=== PATIENT | female | born 1940 | race Caucasian/White ===

== ENCOUNTER 2017-06-07 17:49 | Observation (INO) | payer MEDICARE, BC ==
[~2017-06-07] VITALS: Ht 154.9 cm; Wt 79.4 kg
[2017-06-07] VITALS (10 sets, daily range): BP systolic 127–155; BP diastolic 59–85; PULSE 72–85; RESP 16–18; TEMP 96–98.3; O2SAT 95–99
[2017-06-07] MEDS ORDERED: SYNT25TA PO (18:05)
[2017-06-07] MEDS ORDERED: ARMO60TA PO (18:05)
[2017-06-07] MEDS ORDERED: ASPI81CH6 CHEW (18:05)
[2017-06-07 18:28] LABS: AUTOMATED NEUTROPHIL # 3.8 TH/MM3 (1.8-7.7); BASOPHIL % 0.7 % (0.0-2.0); CHLORIDE 105 MEQ/L (98-107); EOSINOPHIL # 0.3 TH/MM3 (0-0.4); EOSINOPHIL % 4.3 % (0.0-4.0); HEMATOCRIT 28.3 % (35.0-46.0); LYMPH % 27.6 % (9.0-44.0); LYMPHOCYTE # 1.8 TH/MM3 (1.0-4.8); MEAN CELL VOLUME 66.3 FL (80.0-100.0); MEAN CORPUSCULAR HEMOGLOBIN 20.7 PG (27.0-34.0); MEAN CORPUSCULAR HGB CONC 31.2 % (32.0-36.0); MONO % 9.4 % (0.0-8.0); PLATELET COUNT 350 TH/MM3 (150-450); POTASSIUM 4.2 MEQ/L (3.5-5.1); RED BLOOD COUNT 4.27 MIL/MM3 (4.00-5.30); RED CELL DISTRIBUTION WIDTH 18.7 % (11.6-17.2); SODIUM (NA) 138 MEQ/L (136-145); WHITE BLOOD COUNT 6.5 TH/MM3 (4.0-11.0)
--- NOTE | 2017-06-07 18:29 | PD ---
HPI Chief Complaint: Chest Pain Time Seen by Provider: 18:09 Travel History International Travel<30 days: No Contact w/Intl Traveler<30days: No Traveled to known affect area: No History of Present Illness HPI Patient is a 76-year-old female with history of mitral valve stenosis who presents to emergency with complaints of chest pain. Patient reports that chest began early this morning around 9:30 AM, reports that chest pain is located in her left breast, reports that radiates to her back. Patient reports the pressure sensation to her chest wall, no shortness of breath or diaphoresis with her symptoms. Patient reports that it is hard for her to take a deep breath as she has increased pains to her chest with deep breaths. She reports that throughout the day, the pain has moved to her right chest wall. Patient reports no history of hypertension or hyperlipidemia, reports history of COPD in the past. Reports no recent travels or trips, no history of PE or DVT. Patient reports that she did see Dr. Vee in the past (about 3 years ago) and was placed on Coumadin - reports that she could not tolerate the Coumadin and she was then put on Eliquis. Patient was unsure why she was placed on anticoagulants, reports that she was told that this is the only thing that would help with her symptoms. Patient reports that she could not tolerate either the medications, she was discharged from Dr. Vee's service and her appointment was canceled. Patient reports that she was never seen by a track moving machine operator since then as she did not believe she had any cardiac issues. Patient this time reports that the only medication she takes is 3 baby aspirins a day. She is a nonsmoker. PFSH Past Medical History Cardiovascular Problems: Yes (mitral valve stenosis) Diminished Hearing: No Influenza Vaccination: No ?: Not Past Surgical History Appendectomy: Yes Hysterectomy: Yes Social History Alcohol Use: Yes Tobacco Use: No Allergies-Medications (Allergen,Severity, Reaction): Coded Allergies: nickel (Verified Allergy, Severe, Burning, 06/07/17) Reported Meds & Prescriptions Reported Meds & Active Scripts Active Reported Synthroid (Levothyroxine Sodium) 25 Mcg Tab 25 Mcg PO DAILY [place] Thyroid (Thyroid) 60 Mg Tab 60 Mg PO DAILY Aspirin Low Dose (Aspirin) 81 Mg Chew 324 Mg CHEW DAILY Review of Systems General / Constitutional: No: Fever Eyes: No: Visual changes HENT: No: Headaches Cardiovascular: Positive: Chest Pain or Discomfort, No: Diaphoresis Respiratory: No: Cough, Shortness of Breath Gastrointestinal: No: Nausea, Vomiting, Diarrhea, Abdominal Pain Genitourinary: No: Dysuria Musculoskeletal: No: Pain Skin: No Rash Neurologic: No: Weakness Psychiatric: No: Depression Endocrine: No: Polydipsia Hematologic/Lymphatic: No: Easy Bruising Physical Exam Narrative GENERAL: Mild distress SKIN: Focused skin assessment warm/dry. HEAD: Atraumatic. Normocephalic. EYES: Pupils equal and round. No scleral icterus. No injection or drainage. ENT: No nasal bleeding or discharge. Mucous membranes pink and moist. NECK: Trachea midline. No JVD. CARDIOVASCULAR: Regular rate and rhythm. No murmur appreciated. RESPIRATORY: No accessory muscle use. Clear to auscultation. Breath sounds equal bilaterally. GASTROINTESTINAL: Abdomen soft, non-tender, nondistended. Hepatic and splenic margins not palpable. MUSCULOSKELETAL: No obvious deformities. No clubbing. No cyanosis. No edema. NEUROLOGICAL: Awake and alert. No obvious cranial nerve deficits. Motor grossly within normal limits. Normal speech. PSYCHIATRIC: Appropriate mood and affect; insight and judgment normal. Data Data Last Documented VS Vital Signs Date Time Temp Pulse Resp B/P (MAP) Pulse Ox O2 Delivery O2 Flow Rate FiO2 06/07/17 19:44 80 16 132/59 (83) 98 Room Air 06/07/17 17:57 98.3 Orders Orders Electrocardiogram (06/07/17 18:03) Complete Blood Count With Diff (06/07/17 18:03) Basic Metabolic Panel (Bmp) (06/07/17 18:03) Ckmb (Isoenzyme) Profile (06/07/17 18:03) Troponin I (06/07/17 18:03) Chest, Single Ap (06/07/17 18:03) Iv Access Insert/Monitor (06/07/17 18:03) Ecg Monitoring (06/07/17 18:03) Oxygen Administration (06/07/17 18:03) Oximetry (06/07/17 18:03) Ct Pulmonary Angiogram (06/07/17 18:20) Aspirin Chew (Aspirin Chew) (06/07/17 18:30) Nitroglycerin Sl (Nitrostat Sl) (06/07/17 18:30) Sodium Chlor 0.9% 1000 Ml Inj (Ns 1000 M (06/07/17 18:30) CKMB (06/07/17 18:00) CKMB% (06/07/17 18:00) Iohexol 350 Inj (Omnipaque 350 Inj) (06/07/17 19:13) Admit Order (Ed Use Only) (06/07/17 20:51) Labs Laboratory Tests Test 06/07/17 18:00 White Blood Count 6.5 TH/MM3 Red Blood Count 4.27 MIL/MM3 Hemoglobin 8.8 GM/DL Hematocrit 28.3 % Mean Corpuscular Volume 66.3 FL Mean Corpuscular Hemoglobin 20.7 PG Mean Corpuscular Hemoglobin Concent 31.2 % Red Cell Distribution Width 18.7 % Platelet Count 350 TH/MM3 Mean Platelet Volume 8.1 FL Neutrophils (%) (Auto) 58.0 % Lymphocytes (%) (Auto) 27.6 % Monocytes (%) (Auto) 9.4 % Eosinophils (%) (Auto) 4.3 % Basophils (%) (Auto) 0.7 % Neutrophils # (Auto) 3.8 TH/MM3 Lymphocytes # (Auto) 1.8 TH/MM3 Monocytes # (Auto) 0.6 TH/MM3 Eosinophils # (Auto) 0.3 TH/MM3 Basophils # (Auto) 0.0 TH/MM3 CBC Comment AUTO DIFF Differential Comment AUTO DIFF CONFIRMED Target Cells 1+ Tear Drop Cells 1+ Ovalocytes 1+ Blood Urea Nitrogen 20 MG/DL Creatinine 0.63 MG/DL Random Glucose 79 MG/DL Calcium Level 8.2 MG/DL Sodium Level 138 MEQ/L Potassium Level 4.2 MEQ/L Chloride Level 105 MEQ/L Carbon Dioxide Level 24.1 MEQ/L Anion Gap 9 MEQ/L Estimat Glomerular Filtration Rate 92 ML/MIN Total Creatine Kinase 110 U/L Creatine Kinase MB 0.9 NG/ML Troponin I LESS THAN 0.02 NG/ML MDM Medical Decision Making Medical Screen Exam Complete: Yes Emergency Medical Condition: Yes Medical Record Reviewed: Yes Interpretation(s) EKG at 1756: NSR at 81bpm, qt/qtc: 378/415, no acute st or t wave changes Vital Signs Date Time Temp Pulse Resp B/P (MAP) Pulse Ox O2 Delivery O2 Flow Rate FiO2 06/07/17 18:10 98 Room Air 06/07/17 18:09 81 18 155/76 (102) 99 Room Air 06/07/17 18:05 82 06/07/17 17:57 98.3 85 18 146/76 (99) 98 Differential Diagnosis ACS, arrhythmia, PE, pneumothorax Narrative Course During the course of the patients emergency department visit, the patients history, examination, and differential diagnosis were reviewed with the patient. The patient was placed on a irrigationist designer with oximetry and frequent blood pressure monitoring. The patient had [-] IV access obtained and blood work sent for analysis. The patient was initially provided SL NITRO x 3 (relief of chest pain after SL nitro was given) as well as ASA The patients laboratory studies were reviewed and remarkable for: CBC & BMP Diagram 06/07/17 18:00 Calcium Level 8.2 L TROP x 1 less than 0.02 Radiology studies were reviewed and remarkable for: Last Impressions Chest X-Ray 06/07/17 1803 Signed Impressions: Service Date/Time: Wednesday, June 07, 2017 18:17 - CONCLUSION: No acute abnormality seen in Pablo Sal MD CTA negative for PE. Patient with relief of chest pain at time. Plan to obs in chest pain center. Diagnosis Primary Impression: Chest pain Qualified Codes: R07.9 - Chest pain, unspecified Admitting Information Admitting Physician Requests: Observation Dalia Walker DO Jun 07, 2017 18:29
[2017-06-07] MEDS ORDERED: ASPIRIN 81 MG CHEW TAB PO ONE (18:30)
[2017-06-07] MEDS ORDERED: SODIUM CHLOR 0.9% 1000 ML INJ 1,000 ML IV ONE (18:30)
[2017-06-07 18:31] LABS: ANION GAP 9 MEQ/L (5-15); BICARBONATE 24.1 MEQ/L (21.0-32.0); BLOOD UREA NITROGEN 20 MG/DL (7-18)
[2017-06-07 18:34] LABS: GLOMERULAR FILTRATION RATE 92 ML/MIN (>89)
[2017-06-07 18:37] LABS: CREATINE KINASE 110 U/L (26-192)
[2017-06-07] MEDS: NITROGLYCERIN 0.4 MG SL 25 TABS/BTL SL SCH ×3 (18:38→19:35)
[2017-06-07 18:45] LABS: HEMO FLAGS AUTO DIFF
[2017-06-07 18:49] LABS: CKMB 0.9 NG/ML (0.5-3.6)
[2017-06-07] MEDS ORDERED: IOHEXOL 350 MG/ML 10 ML VIAL (for RAD DIAG) IVCONTRAST ONE (19:13)
--- NOTE | 2017-06-07 19:26 | RADRPT ---
EXAM DATE/TIME: 06/07/2017 18:17 [facility] COMPARISON: No previous studies available for comparison. INDICATIONS : Chest pain today. MEDICAL HISTORY : None. SURGICAL HISTORY : None. ENCOUNTER: Initial ACUITY: 1 day PAIN SCORE: 6/10 LOCATION: Bilateral chest FINDINGS: The heart size is normal. The lungs are grossly clear. There is a mass like area seen posterior to th e inferior aspect of heart likely related either to a hiatal hernia or a tortuous aorta. The patient is scheduled for a CT pulmonary angiogram. CONCLUSION: No acute abnormality seen in aPblo Sal MD on June 07, 2017 at 19:23 Board Certified Radiologist. This report was verified electronically.
[2017-06-07 19:42] LABS: OVALOCYTES 1+ (NORMAL); SCAN/DIFF AUTO DIFF CONFIRMED; TARGET CELLS 1+ (NORMAL); TEARDROP RBCS 1+ (NORMAL)
--- NOTE | 2017-06-07 20:36 | RADRPT ---
EXAM DATE/TIME: 06/07/2017 19:06 [facility] COMPARISON: CHEST SINGLE AP, June 07, 2017, 18:17. INDICATIONS : Left sided chest pain radiating to her back. Evaluate for embolism. IV CONTRAST: 65 cc Omnipaque 350 (iohexol) IV RADIATION DOSE: 19.70 CTDIvol (mGy) MEDICAL HISTORY : None SURGICAL HISTORY : Appendectomy. Hysterectomy. ENCOUNTER: Initial ACUITY: 1 day PAIN SCALE: 5/10 LOCATION: Left chest TECHNIQUE: Volumetric scanning of the chest was performed using a pulmonary embolism protocol MIP images were re constructed. Using automated exposure control and adjustment of the mA and/or kV according to patien t size, radiation dose was kept as low as reasonably achievable to obtain optimal diagnostic quality images. DICOM format image data is available electronically for review and comparison. Follow-up recommendations for detected pulmonary nodules are based at a minimum on nodule size and pa tient risk factors according to Fleischner Society Guidelines. FINDINGS: No pulmonary embolus is seen. There is some minimal suspected atelectasis at the periphery of the low er lungs. The lungs are otherwise clear. There is a moderate to large hiatal hernia with approximat tamika half of the stomach seen above the hemidiaphragm. Atherosclerotic calcifications are seen at the aorta. Calcifications are seen at the aortic valve and the mitral valve anulus. There is a 1.5 cm gallstone present. There are low density masses seen in the right lobe of the liver. These measure u p to 3.5 cm. These are nonspecific on this CTA for the pulmonary embolus evaluation. They likely re present cysts. There is a small lipoma seen at the left lateral upper abdominal wall measuring 3.3 x 1.4 cm. CONCLUSION: 1. No pulmonary embolus. 2. Moderate to large hiatal hernia. 3. Gallstone. 4. Hepatic lesions which are nonspecific. These could represent cysts. Pablo Sal MD on June 07, 2017 at 20:24 Board Certified Radiologist. This report was verified electronically.
[2017-06-07] MEDS ORDERED: SODIUM CHLORIDE 0.9% FLUSH 10 ML FLUSH IV FLUSH PRN (21:00)
[2017-06-07] MEDS ORDERED: ACETAMINOPHEN 500 MG CPLT PO PRN (21:00)
[2017-06-07] MEDS ORDERED: ONDANSETRON HCL 4 MG/2 ML VIAL IV PUSH PRN (21:00)
[2017-06-07] MEDS: HEPARIN SODIUM - SQ 10,000 UNITS/ML VIAL SQ SCH (22:17)
[2017-06-07 22:52] LABS: CREATINE KINASE 90 U/L (26-192)
[2017-06-07] MEDS: SODIUM CHLORIDE 0.9% FLUSH 10 ML FLUSH IV FLUSH SCH (23:23)
[2017-06-08] VITALS: BP 133/74; PULSE 72; RESP 18; TEMP 96; O2SAT 97
[2017-06-08 00:46] LABS: CREATINE KINASE 84 U/L (26-192)
[2017-06-08 04:00] VITALS: BP 103/55; PULSE 80; RESP 20; TEMP 97.5; O2SAT 95
[2017-06-08] MEDS: HEPARIN SODIUM - SQ 10,000 UNITS/ML VIAL SQ SCH (05:52)
[2017-06-08] MEDS ORDERED: LEVOTHYROXINE SODIUM 25 MCG TAB PO SCH (06:00)
[2017-06-08 08:00] VITALS: BP 122/68; PULSE 80; RESP 16; TEMP 96.8; O2SAT 95; O2SAT 98
--- NOTE | 2017-06-08 08:30 | HHI.HP ---
HPI Service [facility] Primary Care Physician No Primary Care Physician Admission Diagnosis Chest pain Diagnoses: (1) Chest pain Chief Complaint: Chest pain Travel History International Travel<30 Days: No Contact w/Intl Traveler <30 Da: No Traveled to Known Affected Are: No History of Present Illness Written by Montse Escamilla, acting as scribe for Dr. Thompson on 06/08/17 at 08:15. Ms. Reyes is a 76-year-old female patient with a known medical history of mitral valve stenosis, COPD and hypothyroidism who presented to the ED with complaints of chest pain. Patient states that she was shopping with her and around 1pm she noticed a sharp pain in her left chest which radiated to her left arm and shoulder. Reportedly patient states the pain was worse with inspiration.She initially went to urgent care who sent her here. Was given Nitroglycerin SL x 3 in ED which relieved the pain. Denies any associated nausea , vomiting, diaphoresis or shortness of breath. At the time of assessment patient denies any continued chest pain, denies any continued complaints overnight. It was reported that patient was previously a patient with Dr. Vee and placed on anticoagulants in the past but for unknown reasons. Denies any recent illness including fever, chills, cough, headache, shortness of breath, abdominal pain, nausea, vomiting, diarrhea or dysuria. Review of Systems Constitutional: DENIES: Fever, Chills Respiratory: DENIES: Cough, Shortness of breath Cardiovascular: COMPLAINS OF: Chest pain, DENIES: Palpitations Gastrointestinal: DENIES: Abdominal pain, Bloody stools, Constipation, Diarrhea , Nausea, Vomiting Musculoskeletal: DENIES: Joint pain Psychiatric: COMPLAINS OF: Anxiety Except as stated in HPI: all other systems reviewed are Neg Past Family Social History Past Medical History Mitral valve stenosis Hypothyroidism COPD Celiac disease Past Surgical History Hysterectomy Appendectomy Left leg orthopedic surgeries Reported Medications Active Reported Synthroid (Levothyroxine Sodium) 25 Mcg Tab 25 Mcg PO DAILY [place] Thyroid (Thyroid) 60 Mg Tab 60 Mg PO DAILY Aspirin Low Dose (Aspirin) 81 Mg Chew 324 Mg CHEW DAILY Allergies: Coded Allergies: nickel (Verified Allergy, Severe, Burning, 06/07/17) Active Ordered Medications Current Medications Medications (Trade) Dose Ordered Sig/Chelle Route Start Time Stop Time Status Last Admin (Aspirin Chew) 324 mg DAILY CHEW 06/08/17 09:00 (Synthroid) 25 mcg DAILY@0600 PO 06/08/17 06:00 06/08/17 05:51 ([place] Thyroid) 60 mg DAILY PO 06/08/17 09:00 (NS Flush) 2 ml UNSCH PRN IV FLUSH 06/07/17 21:00 (NS Flush) 2 ml BID IV FLUSH 06/07/17 21:00 06/07/17 23:23 (Tylenol) 500 mg Q4H PRN PO 06/07/17 21:00 (Zofran Inj) 4 mg Q6H PRN IV PUSH 06/07/17 21:00 (Heparin Inj) 5,000 units Q8HR SQ 06/07/17 22:00 06/08/17 05:52 Family History Both father and mother has a history of strokes. Social History Denies any tobacco use. Does admit to a few alcoholic drinks per week. Denies any illicit drug use. Physical Exam Vital Signs Vital Signs Date Time Temp Pulse Resp B/P (MAP) Pulse Ox O2 Delivery O2 Flow Rate FiO2 06/08/17 04:00 97.5 80 20 103/55 (71) 95 06/08/17 00:00 96.0 72 18 133/74 (93) 97 06/07/17 23:40 95 21 06/07/17 23:00 85 06/07/17 23:00 96.0 72 18 133/74 (93) 97 06/07/17 22:12 98.2 78 18 135/85 (102) 98 06/07/17 21:15 80 16 127/78 (94) 97 Room Air 06/07/17 19:44 80 16 132/59 (83) 98 Room Air 06/07/17 19:36 82 128/66 (86) 98 Room Air 06/07/17 19:23 77 16 143/75 (97) 97 Room Air 06/07/17 18:40 79 18 147/71 (96) 98 Room Air 06/07/17 18:10 98 Room Air 06/07/17 18:09 81 18 155/76 (102) 99 Room Air 06/07/17 18:05 82 06/07/17 17:57 98.3 85 18 146/76 (99) 98 Physical Exam GENERAL: This is a well-nourished, well-developed female patient, in no apparent distress. SKIN: No rashes, ecchymoses or lesions. Warm and dry. HEENT: Atraumatic. Normocephalic. Pupils equal round and reactive. Extraocular motions intact. No scleral icterus. No injection or drainage. Nose without bleeding. Throat without erythema, tonsillar hypertrophy or exudate. Uvula midline. Airway patent. NECK: Trachea midline. No JVD. Supple. CARDIOVASCULAR: Regular rate and rhythm without murmurs, gallops, or rubs. No reproducible chest pain to palpation. RESPIRATORY: Clear to auscultation. Breath sounds equal bilaterally. No wheezes , rales, or rhonchi. GASTROINTESTINAL: Abdomen soft, non-tender, nondistended. No guarding. MUSCULOSKELETAL: Extremities without clubbing, cyanosis, or edema. No joint tenderness, effusion, or edema noted. NEUROLOGICAL: Awake and alert. Cranial nerves II through XII intact. Motor and sensory grossly within normal limits. Five out of 5 muscle strength in all muscle groups. Normal speech. Laboratory Laboratory Tests Test 06/07/17 18:00 06/07/17 21:35 06/07/17 23:50 White Blood Count 6.5 Red Blood Count 4.27 Hemoglobin 8.8 Hematocrit 28.3 Mean Corpuscular Volume 66.3 Mean Corpuscular Hemoglobin 20.7 Mean Corpuscular Hemoglobin Concent 31.2 Red Cell Distribution Width 18.7 Platelet Count 350 Mean Platelet Volume 8.1 Neutrophils (%) (Auto) 58.0 Lymphocytes (%) (Auto) 27.6 Monocytes (%) (Auto) 9.4 Eosinophils (%) (Auto) 4.3 Basophils (%) (Auto) 0.7 Neutrophils # (Auto) 3.8 Lymphocytes # (Auto) 1.8 Monocytes # (Auto) 0.6 Eosinophils # (Auto) 0.3 Basophils # (Auto) 0.0 CBC Comment AUTO DIFF Differential Comment AUTO DIFF CONFIRMED Target Cells 1+ Tear Drop Cells 1+ Ovalocytes 1+ Blood Urea Nitrogen 20 Creatinine 0.63 Random Glucose 79 Calcium Level 8.2 Sodium Level 138 Potassium Level 4.2 Chloride Level 105 Carbon Dioxide Level 24.1 Anion Gap 9 Estimat Glomerular Filtration Rate 92 Total Creatine Kinase 110 90 84 Creatine Kinase MB 0.9 Troponin I LESS THAN 0.02 LESS THAN 0.02 LESS THAN 0.02 Result Diagram: 06/07/17 1800 06/07/[address] Angiography 06/07/17 1820 Signed Impressions: Service Date/Time: Wednesday, June 07, 2017 19:06 - CONCLUSION: 1. No pulmonary embolus. 2. Moderate to large hiatal hernia. 3. Gallstone. 4. Hepatic lesions which are nonspecific. These could represent cysts. Pablo Sal MD Chest X-Ray 06/07/171802 Signed Impressions: Service Date/Time: Wednesday, June 07, 2017 18:17 - CONCLUSION: No acute abnormality seen in Pablo Sal MD [place] VTE Risk Assessment [place] VTE Risk Assessment: Mod/High Risk (score >= 2) Caprini Risk Assessment Model Point Value = 1 Point Value = 2 Point Value = 3 Point Value = 5 Age 41-60 Minor surgery BMI > 25 kg/m2 Swollen legs Varicose veins or History of unexplained or recurrent spontaneous Oral contraceptives or hormone replacement Sepsis (< 1 month) Serious lung disease, including pneumonia (< 1 month) Abnormal pulmonary function Acute myocardial infarction Congestive heart failure (< 1 month) History of inflammatory bowel disease Medical patient at bed rest Age 61-74 Arthroscopic surgery Major open surgery (> 45 min) Laparoscopic surgery (> 45 min) Malignancy Confined to bed (> 72 hours) Immobilizing plaster cast Central venous access Age >= 75 History of VTE Family history of VTE Factor V Leiden Prothrombin [id number] Lupus anticoagulant Anticardiolipin antibodies Elevated serum homocysteine Heparin-induced thrombocytopenia Other congenital or acquired thrombophilia Stroke (< 1 month) Elective arthroplasty Hip, pelvis, or leg fracture Acute spinal cord injury (< 1 month) Prophylaxis Regimen Total Risk Factor Score Risk Level Prophylaxis Regimen 0-1 Low Early ambulation 2 Moderate Order ONE of the following: *Sequential Compression Device (SCD) *Heparin 5000 units SQ BID 3-4 Higher Order ONE of the following medications: *Heparin 5000 units SQ TID *Enoxaparin/Lovenox 40 mg SQ daily (WT < 150 kg, CrCl > 30 mL/min) *Enoxaparin/Lovenox 30 mg SQ daily (WT < 150 kg, CrCl > 10-29 mL/min) *Enoxaparin/Lovenox 30 mg SQ BID (WT < 150 kg, CrCl > 30 mL/min) AND/OR *Sequential Compression Device (SCD) 5 or more Highest Order ONE of the following medications: *Heparin 5000 units SQ TID (Preferred with Epidurals) *Enoxaparin/Lovenox 40 mg SQ daily (WT < 150 kg, CrCl > 30 mL/min) *Enoxaparin/Lovenox 30 mg SQ daily (WT < 150 kg, CrCl > 10-29 mL/min) *Enoxaparin/Lovenox 30 mg SQ BID (WT < 150 kg, CrCl > 30 mL/min) AND *Sequential Compression Device (SCD) Assessment and Plan Problem List: (1) Chest pain ICD Code: R07.9 - Chest pain, unspecified Status: Acute Plan: Patient has been admitted to the chest pain center. Was given Nitroglycerin SL x 3. Serial EKGs and serial troponins ordered for ruling out ACS purposes. Troponins flat. EKG reviewed showing NSR with some early repolarization, HR 81, no ST changes to indicate acute ischemia. CXR reviewed showing no acute disease. CTA reviewed which was negative for PE. Moderate to large hiatal hernia. Gallstone. Started on Aspirin 325 mg PO daily. Will check lipid panel. Follow. Will order a treadmill stress test to rule out any further possibility of ischemia. Further treatment plan will depend on results of cardiac stress test. Patient is stable at this time and agreeable to the plan. (2) Hypothyroidism ICD Code: E03.9 - Hypothyroidism, unspecified Plan: Restarted home Levothyroxine. (3) Anemia, chronic disease ICD Code: D63.8 - Anemia in other chronic diseases classified elsewhere Plan: Hemoglobin 8.8/Hematocrit 28.3 on presentation. Patient states she takes new iron at home and this is a chronic problem. Can be managed outpatient. Encouraged patient to have bring in her iron supplementation. Assessment and Plan This note was transcribed by carlita Escamilla. I, Dr. Tierney Thompson personally performed the history, physical exam, and medical decision making; and confirmed the accuracy of the information in the transcribed note. Authenticated by Dr. Tierney Thompson on 06/08/17 at 08:15. DVT prophylaxis: Heparin. 1206 -- Treadmill stress test images sent over to pickling tank operator Dr. Horn, reviewed and normal. OK to discharge home. Encouraged to follow up PCP in 1 week. If any further chest pain or discomfort encouraged to come back to ED. Patient is stable at this time and agreeable to the plan. 1624 -- Received call from Dr. Argueta who read patient's treadmill stress test and was concerned regarding ST changes in lateral and inferior leads. Patient has been discharged at this time. Recommendations from Dr. Argueta are to call patient and request direct admission tomorrow morning for Nuclear ETT test to further evaluate for any ischemia. Attempted to call patient multiple times on two different numbers with no response. Left voicemail x 2. Will continue to attempt tonight and if no response will attempt again in the am. Dr. Argueta is aware. Code Status full Discussed Condition With patient Problem Qualifiers (1) Chest pain: Qualified Codes: R07.9 - Chest pain, unspecified Montse Escamilla Jun 08, 2017 08:30 Tierney Thompson MD Jun 08, 2017 08:50
[2017-06-08] MEDS: SODIUM CHLORIDE 0.9% FLUSH 10 ML FLUSH IV FLUSH SCH (08:47)
[2017-06-08] MEDS ORDERED: ASPIRIN 81 MG CHEW TAB CHEW SCH (09:00)
[2017-06-08] MEDS ORDERED: THYROID 30 MG TAB PO SCH (09:00)
--- NOTE | 2017-06-08 12:04 | HHI.DCPOC ---
Discharge Care Plan Diagnosis: (1) Chest pain (2) Hypothyroidism (3) Anemia, chronic disease Your Health Problems Are: Chest Pain Goals to Promote Your Health * To prevent worsening of your condition and complications * To maintain your health at the optimal level Directions to Meet Your Goals Take your medications as prescribed Follow your dietary instruction Follow activity as directed Keep your appointments as scheduled Take your immunizations and boosters as scheduled If your symptoms worsen call your PCP, if no PCP go to Urgent Care Center or Emergency Room Smoking is Dangerous to Your Health. Avoid second hand smoke Call the 24-hour hour crisis hotline for domestic abuse at Montse Escamilla Jun 08, 2017 12:04
[2017-06-08 12:44] LABS: HDL CHOLESTEROL 67.6 MG/DL (40.0-60.0)
--- NOTE | 2017-06-08 16:35 | EKG ---
Date Performed: 06/07/2017 Time Performed: 21:29:38 PTAGE: 76 years EKG: Sinus rhythm WITH SINUS ARRHYTHMIA POSSIBLE RIGHT VENTRICULAR CONDUCTION DELAY BORDERLINE ECGSince PREVIOUS TRACING , no significant change noted DOCTOR: Alicia Argueta Interpretating Date/Time 06/08/2017 16:34:34
--- NOTE | 2017-06-08 16:38 | EKG ---
Date Performed: 06/07/2017 Time Performed: 23:36:38 PTAGE: 76 years EKG: Sinus rhythm WITH OCCASIONAL ECTOPIC PREMATURE COMPLEXES POSSIBLE RIGHT VENTRICULAR CONDUCTION DELAY BORDERLINE E CG Since PREVIOUS TRACING , no significant change noted PREVIOUS TRACIN06/07/2017 21.29 DOCTOR: Alicia Argueta Interpretating Date/Time 06/08/2017 16:36:47
--- NOTE | 2017-06-08 18:20 | TR ---
Date Performed: 06/08/2017 Time Performed: 09:46:55 DOCTOR: Alicia Argueta DRUG LIST: CLINICAL HISTORY: REASON FOR TEST: Chest pain REASON FOR ENDING: OBSERVATION: CONCLUSION: Josh protocol performed, test stopped secondary to meeting target heart rate and le g fatigue. No reproducible chest discomfort. Good BP response. Fair exercise tolerance. Recovery quic k and unremarkable.Maximum ST=727 Target HR Aetqmihu=341.0% Maximum JJ=666/80 Total Exercise Time=5:0 1 COMMENTS:
--- NOTE | 2017-06-08 18:58 | EKG ---
Date Performed: 06/07/2017 Time Performed: 17:56:29 PTAGE: 76 years EKG: Sinus rhythm NORMAL ECG NO PREVIOUS TRACING DOCTOR: Agatha White Interpretating Date/Time 06/08/2017 18:56:47
== END 2017-06-08 13:34 | disposition home or self-care (01) ==
LOC: PHED 17:49 → PHEDA 20:51 → PH3B 22:31
PROVIDERS: ADMIT Hospitalist; ATTEND Hospitalist
DX: R07.89 Other chest pain (principal); K80.20 Calculus of gallbladder without cholecystitis without obstruction; K44.9 Diaphragmatic hernia without obstruction or gangrene; I49.8 Other specified cardiac arrhythmias; E03.9 Hypothyroidism, unspecified; D63.8 Anemia in other chronic diseases classified elsewhere; I05.0 Rheumatic mitral stenosis; J44.9 Chronic obstructive pulmonary disease, unspecified; K90.0 Celiac disease; Z79.82 Long term (current) use of aspirin
CPT/HCPCS: 71010; 71275; 80048; 80061; 82550; 82552; 84484; 85025; 93005; 93017; 96360; 96372; 99285; G0378; J1644; J7030; Q9967

== ENCOUNTER 2017-06-10 10:27 | Observation (INO) | payer MEDICARE, BC ==
[~2017-06-10 10:27] MED LIST: ARMO60TA PO; ASPI81CH6 CHEW; SYNT25TA PO
[2017-06-10] MEDS ORDERED: AMINOPHYLLINE INJ 250 MG/10 ML VIAL IV ONE (10:28)
[2017-06-10] MEDS ORDERED: REGADENOSON INJ 0.4 MG/5 ML SYR IV ONE (10:28)
[2017-06-10] MEDS ORDERED: ONDANSETRON HCL 4 MG/2 ML VIAL IV PUSH PRN (11:00)
[2017-06-10] MEDS ORDERED: ACETAMINOPHEN 500 MG CPLT PO PRN (11:00)
[2017-06-10] MEDS ORDERED: SODIUM CHLORIDE 0.9% FLUSH 10 ML FLUSH IV FLUSH PRN (11:00)
[2017-06-10 11:15] VITALS: BP 121/72; PULSE 82; RESP 18; TEMP 98.5; O2SAT 96
--- NOTE | 2017-06-10 11:27 | HHI.HP ---
[facility] Unknown Admission Diagnosis Abnormal treadmill stress test Diagnoses: (1) Abnormal stress ECG with treadmill Diagnosis: Principal Chief Complaint: Abnormal stress test Travel History International Travel<30 Days: No Contact w/Intl Traveler <30 Da: No Traveled to Known Affected Are: No History of Present Illness Ms. Reyes is a 76-year-old female patient with a known medical history of mitral valve stenosis, COPD and hypothyroidism who presented to the ED with complaints of chest pain on 06/07/17. Patient underwent a cardiac treadmill stress test which was read by Dr. Argueta with concern for ST changes in lateral and inferior leads. Patient is to undergo a Lexiscan to rule out any possibility of further ischemia. Cardiac enzymes and troponins were all flat when worked up 3 days ago. EKGs reviewed and unremarkable. At the time of assessment patient complains of back pain with some associated aching in chest. She states that this is similar discomfort that brought her in to the hospital a few days ago but has minimized in severity, patient rates it a 2/10 on pain scale, intermittent and aching in nature, denies any associated symptoms, denies any radiation. Review of Systems Constitutional: DENIES: Fever, Chills Respiratory: DENIES: Cough, Shortness of breath Cardiovascular: COMPLAINS OF: Chest pain Gastrointestinal: DENIES: Abdominal pain, Constipation, Diarrhea, Nausea, Vomiting Psychiatric: DENIES: Anxiety Except as stated in HPI: all other systems reviewed are Neg Past Family Social History Past Medical History Mitral valve stenosis Hypothyroidism COPD Celiac disease Past Surgical History Hysterectomy Appendectomy Left leg orthopedic surgeries Reported Medications Active Reported Synthroid (Levothyroxine Sodium) 25 Mcg Tab 25 Mcg PO DAILY [place] Thyroid (Thyroid) 60 Mg Tab 60 Mg PO DAILY Aspirin Low Dose (Aspirin) 81 Mg Chew 324 Mg CHEW DAILY Allergies: Coded Allergies: nickel (Verified Allergy, Severe, Burning, 06/07/17) Active Ordered Medications Current Medications Medications (Trade) Dose Ordered Sig/Chelle Route Start Time Stop Time Status Last Admin (NS Flush) 2 ml UNSCH PRN IV FLUSH 06/10/17 11:00 (NS Flush) 2 ml BID IV FLUSH 06/10/17 21:00 (Tylenol) 500 mg Q4H PRN PO 06/10/17 11:00 (Zofran Inj) 4 mg Q6H PRN IV PUSH 06/10/17 11:00 Family History Both father and mother has a history of strokes. Social History Denies any tobacco use. Does admit to a few alcoholic drinks per week. Denies any illicit drug use. Physical Exam Physical Exam GENERAL: This is a well-nourished, well-developed female patient, in no apparent distress. SKIN: No rashes, ecchymoses or lesions. Warm and dry. HEENT: Atraumatic. Normocephalic. Pupils equal round and reactive. Extraocular motions intact. No scleral icterus. No injection or drainage. Nose without bleeding. Throat without erythema, tonsillar hypertrophy or exudate. Uvula midline. Airway patent. NECK: Trachea midline. No JVD. Supple. CARDIOVASCULAR: Regular rate and rhythm without murmurs, gallops, or rubs. No reproducible chest pain to palpation. RESPIRATORY: Clear to auscultation. Breath sounds equal bilaterally. No wheezes , rales, or rhonchi. GASTROINTESTINAL: Abdomen soft, non-tender, nondistended. No guarding. MUSCULOSKELETAL: Extremities without clubbing, cyanosis, or edema. No joint tenderness, effusion, or edema noted. NEUROLOGICAL: Awake and alert. Cranial nerves II through XII intact. Motor and sensory grossly within normal limits. Five out of 5 muscle strength in all muscle groups. Normal speech. Caprini VTE Risk Assessment Caprini VTE Risk Assessment: Mod/High Risk (score >= 2) Caprini Risk Assessment Model Point Value = 1 Point Value = 2 Point Value = 3 Point Value = 5 Age 41-60 Minor surgery BMI > 25 kg/m2 Swollen legs Varicose veins or History of unexplained or recurrent spontaneous Oral contraceptives or hormone replacement Sepsis (< 1 month) Serious lung disease, including pneumonia (< 1 month) Abnormal pulmonary function Acute myocardial infarction Congestive heart failure (< 1 month) History of inflammatory bowel disease Medical patient at bed rest Age 61-74 Arthroscopic surgery Major open surgery (> 45 min) Laparoscopic surgery (> 45 min) Malignancy Confined to bed (> 72 hours) Immobilizing plaster cast Central venous access Age >= 75 History of VTE Family history of VTE Factor V Leiden Prothrombin [id number] Lupus anticoagulant Anticardiolipin antibodies Elevated serum homocysteine Heparin-induced thrombocytopenia Other congenital or acquired thrombophilia Stroke (< 1 month) Elective arthroplasty Hip, pelvis, or leg fracture Acute spinal cord injury (< 1 month) Prophylaxis Regimen Total Risk Factor Score Risk Level Prophylaxis Regimen 0-1 Low Early ambulation 2 Moderate Order ONE of the following: *Sequential Compression Device (SCD) *Heparin 5000 units SQ BID 3-4 Higher Order ONE of the following medications: *Heparin 5000 units SQ TID *Enoxaparin/Lovenox 40 mg SQ daily (WT < 150 kg, CrCl > 30 mL/min) *Enoxaparin/Lovenox 30 mg SQ daily (WT < 150 kg, CrCl > 10-29 mL/min) *Enoxaparin/Lovenox 30 mg SQ BID (WT < 150 kg, CrCl > 30 mL/min) AND/OR *Sequential Compression Device (SCD) 5 or more Highest Order ONE of the following medications: *Heparin 5000 units SQ TID (Preferred with Epidurals) *Enoxaparin/Lovenox 40 mg SQ daily (WT < 150 kg, CrCl > 30 mL/min) *Enoxaparin/Lovenox 30 mg SQ daily (WT < 150 kg, CrCl > 10-29 mL/min) *Enoxaparin/Lovenox 30 mg SQ BID (WT < 150 kg, CrCl > 30 mL/min) AND *Sequential Compression Device (SCD) Assessment and Plan Problem List: (1) Abnormal stress ECG with treadmill ICD Code: R94.39 - Abnormal result of other cardiovascular function study Plan: Patient will undergo a nuclear chemical stress test to rule out any further possibility of ischemia. Will monitor on cardiac telemetry to rule out any possibility of arrhythmias. Further treatment and hospitalization will depend on results of nuclear stress test. Will continue to monitor. Patient is stable at this time and agreeable to the plan. Code Status Full code Discussed Condition With Patient Montse Escamilla BAM Jun 10, 2017 11:26
--- NOTE | 2017-06-10 13:17 | RADRPT ---
EXAM DATE/TIME: 06/10/2017 11:37 [place] COMPARISON: No previous studies available for comparison. INDICATIONS : Chest pain. Abnormal exercise treadmill test. DOSE: 26.1 mCi Tc99m Myoview at stress. 8.2 mCi Tc99m Myoview at rest. 0.4 mg Lexiscan STRESS SYMPTOMS: Chest and stomach pain. EJECTION FRACTION: > 70% MEDICAL HISTORY : None SURGICAL HISTORY : Hysterectomy. Appendectomy. ENCOUNTER: Initial ACUITY: 3 days PAIN SCALE: 4/10 LOCATION: chest TECHNIQUE: The patient underwent pharmacologic stress with infusion of prescribed dose. Continuous ECG tracing was monitored during stress. Gated SPECT imaging was performed after stress and conventional SPECT i maging was performed at rest. The examination was performed on a SPECT/CT scanner, both attenuation and non-corrected datasets were reviewed. FINDINGS: DISTRIBUTION: The maximum perfused segment at stress is in the anterior lateral wall. PERFUSION STUDY: The pattern of perfusion at stress is within normal limits. GATED STUDY: There is intact wall motion and thickening without hypokinetic or dyskinetic segments. CONCLUSION: 1. No fixed or reversible defects to suggest ischemia or infarction. 2. Normal wall motion and calculated ejection fraction. RISK CATEGORY: Low (<1% Annual Mortality Rate) Juan Glez MD on June 10, 2017 at 13:10 Board Certified Radiologist. This report was verified electronically.
--- NOTE | 2017-06-10 13:45 | HHI.DCPOC ---
Discharge Care Plan Diagnosis: (1) Abnormal stress ECG with treadmill (2) Anemia, chronic disease (3) Hypothyroidism Your Health Problems Are: Chest Pain Goals to Promote Your Health * To prevent worsening of your condition and complications * To maintain your health at the optimal level Directions to Meet Your Goals Take your medications as prescribed Follow your dietary instruction Follow activity as directed Keep your appointments as scheduled Take your immunizations and boosters as scheduled If your symptoms worsen call your PCP, if no PCP go to Urgent Care Center or Emergency Room Smoking is Dangerous to Your Health. Avoid second hand smoke Call the 24-hour hour crisis hotline for domestic abuse at Montse Escamilla Jun 10, 2017 13:44
--- NOTE | 2017-06-10 16:26 | TR ---
Date Performed: 06/10/2017 Time Performed: 12:14:22 DOCTOR: Geraldo Dixon DRUG LIST: CLINICAL HISTORY: REASON FOR TEST: Chest pain REASON FOR ENDING: OBSERVATION: CONCLUSION: Lexiscan stress test was performed under standard four minute protocol. Radionucl[place] e was injected one minute prior to ending the test. No electrocardiographic abormalities were present to suggest ischemia. Nuclear imaging and interpretation are pending. COMMENTS:
[2017-06-10] MEDS ORDERED: SODIUM CHLORIDE 0.9% FLUSH 10 ML FLUSH IV FLUSH SCH (21:00)
== END 2017-06-10 14:48 | disposition home or self-care (01) ==
LOC: PH3A 10:27
PROVIDERS: ADMIT Family Medicine; ATTEND Family Medicine
DX: R94.39 Abnormal result of other cardiovascular function study (principal); J44.9 Chronic obstructive pulmonary disease, unspecified; I05.0 Rheumatic mitral stenosis; E03.9 Hypothyroidism, unspecified; R07.9 Chest pain, unspecified; M54.9 Dorsalgia, unspecified; K90.0 Celiac disease; D63.8 Anemia in other chronic diseases classified elsewhere
CPT/HCPCS: 78452; 93017; A9502; J0280; J2785

== ENCOUNTER 2017-11-26 12:34 | Observation (INO) | payer MEDICARE, BC ==
[2017-11-26] VITALS (7 sets, daily range): BP systolic 114–140; BP diastolic 57–82; PULSE 79–91; RESP 16–18; TEMP 97.7–98.9; O2SAT 97–99
[~2017-11-26] VITALS: Ht 154.9 cm; Wt 76.0 kg
[2017-11-26 13:09] LABS: AUTOMATED NEUTROPHIL # 4.1 TH/MM3 (1.8-7.7); BASOPHIL # 0.1 TH/MM3 (0-0.2); BASOPHIL % 1.5 % (0.0-2.0); EOSINOPHIL # 0.4 TH/MM3 (0-0.4); EOSINOPHIL % 5.3 % (0.0-4.0); HEMATOCRIT 25.4 % (35.0-46.0); HEMOGLOBIN 7.4 GM/DL (11.6-15.3); LYMPH % 25.1 % (9.0-44.0); LYMPHOCYTE # 1.8 TH/MM3 (1.0-4.8); MEAN CELL VOLUME 60.7 FL (80.0-100.0); MEAN CORPUSCULAR HEMOGLOBIN 17.7 PG (27.0-34.0); MEAN PLATELET VOLUME 8.8 FL (7.0-11.0); MONO % 9.5 % (0.0-8.0); MONOCYTE # 0.7 TH/MM3 (0-0.9); NEUT % 58.6 % (16.0-70.0); PLATELET COUNT 386 TH/MM3 (150-450); RED BLOOD COUNT 4.19 MIL/MM3 (4.00-5.30); RED CELL DISTRIBUTION WIDTH 20.7 % (11.6-17.2)
[2017-11-26 13:13] LABS: MEAN CORPUSCULAR HGB CONC 29.2 % (32.0-36.0)
[2017-11-26] MEDS ORDERED: PANTOPRAZOLE SODIUM 40 MG VIAL IV PUSH ONE (13:15)
[2017-11-26 13:18] LABS: PROTHROMBIN TIME - PATIENT 10.5 SEC (9.8-11.6)
[2017-11-26 13:32] LABS: BICARBONATE 23.3 MEQ/L (21.0-32.0); CALCIUM 8.5 MG/DL (8.5-10.1); CREATININE 0.68 MG/DL (0.50-1.00)
[2017-11-26] MEDS ORDERED: SODIUM CHLOR 0.9% 250 ML INJ 250 ML IV ONE ×2 (13:45→15:00)
--- NOTE | 2017-11-26 14:05 | PD ---
HPI Chief Complaint: Abnormal Results Time Seen by Provider: 12:51 Travel History International Travel<30 days: No Contact w/Intl Traveler<30days: No Traveled to known affect area: No History of Present Illness HPI 77 y/o female presents with low hemoglobin level of 7 that she had done as an outpatient on Tuesday. She had difficulty talking with her physician and did not find out the results until yesterday and elected today to come in. She denies any other concurrent complaints that she knows about other than generalized weakness. She states she always has black stools because she is on iron. She denies specific modifying factors other than feels worse with movement. Quality is low. Severity is 7. PFSH Past Medical History Cardiovascular Problems: Yes Chest Pain: Yes Cerebrovascular Accident: Yes (2015) Diminished Hearing: No Endocrine: Yes Genitourinary: No Neurologic: No Psychiatric: No Respiratory: Yes (copd) Thyroid Disease: Yes Tetanus Vaccination: Unknown Influenza Vaccination: No Past Surgical History Abdominal Surgery: Yes (hysteromony) Appendectomy: Yes Cardiac Surgery: No Hysterectomy: Yes Oral Surgery: Yes (oral infection) Other Surgery: Yes Social History Alcohol Use: Yes Tobacco Use: No Substance Use: No Allergies-Medications (Allergen,Severity, Reaction): Coded Allergies: nickel (Verified Allergy, Severe, Burning, 11/26/17) Reported Meds & Prescriptions Reported Meds & Active Scripts Active Reported Synthroid (Levothyroxine Sodium) 25 Mcg Tab 25 Mcg PO DAILY [place] Thyroid (Thyroid) 60 Mg Tab 60 Mg PO DAILY Aspirin Low Dose (Aspirin) 81 Mg Chew 324 Mg CHEW DAILY Review of Systems Except as stated in HPI: all other systems reviewed are Neg Physical Exam Narrative GENERAL: 77 y/o female in no apparent distress, pale SKIN: Focused skin assessment warm/dry. HEAD: Atraumatic. Normocephalic. EYES: Pupils equal and round. No scleral icterus. No injection or drainage. ENT: No nasal bleeding or discharge. Mucous membranes pink and moist. NECK: Trachea midline. CARDIOVASCULAR: Regular rate and rhythm. RESPIRATORY: No accessory muscle use. Clear to auscultation. Breath sounds equal bilaterally. GASTROINTESTINAL: Abdomen soft, non-tender, nondistended. MUSCULOSKELETAL: No obvious deformities. No clubbing. No cyanosis. RECTAL EXAM: Performed with cost recovery technician and after permission. No large external hemorrhoid or fissure, stool is brown, non-bloody. NEUROLOGICAL: Awake and alert. No obvious cranial nerve deficits. Motor grossly within normal limits. Normal speech. PSYCHIATRIC: Appropriate mood and affect; insight and judgment normal. Data Data Last Documented VS Vital Signs Date Time Temp Pulse Resp B/P (MAP) Pulse Ox O2 Delivery O2 Flow Rate FiO2 11/26/17 12:58 87 18 138/82 (100) 97 Room Air 11/26/17 12:45 98.4 Orders Orders Complete Blood Count With Diff (11/26/17 12:51) Basic Metabolic Panel (Bmp) (11/26/17 12:51) Act Partial Throm Time (Ptt) (11/26/17 12:51) Prothrombin Time / Inr (Pt) (11/26/17 12:51) Iv Access Insert/Monitor (11/26/17 12:51) Ecg Monitoring (11/26/17 12:51) Oximetry (11/26/17 12:51) Type And Screen (11/26/17 12:51) Pantoprazole Inj (Protonix Inj) (11/26/17 13:15) Red Blood Cells (Rbc) (11/26/17 13:40) Blood Product Administration (11/26/17 13:40) Sodium Chlor 0.9% 250 Ml Inj (Ns 250 Ml (11/26/17 13:45) Admit Order (Ed Use Only) (11/26/17 14:21) Labs Laboratory Tests Test 11/26/17 12:55 White Blood Count 7.0 TH/MM3 Red Blood Count 4.19 MIL/MM3 Hemoglobin 7.4 GM/DL Hematocrit 25.4 % Mean Corpuscular Volume 60.7 FL Mean Corpuscular Hemoglobin 17.7 PG Mean Corpuscular Hemoglobin Concent 29.2 % Red Cell Distribution Width 20.7 % Platelet Count 386 TH/MM3 Mean Platelet Volume 8.8 FL Neutrophils (%) (Auto) 58.6 % Lymphocytes (%) (Auto) 25.1 % Monocytes (%) (Auto) 9.5 % Eosinophils (%) (Auto) 5.3 % Basophils (%) (Auto) 1.5 % Neutrophils # (Auto) 4.1 TH/MM3 Lymphocytes # (Auto) 1.8 TH/MM3 Monocytes # (Auto) 0.7 TH/MM3 Eosinophils # (Auto) 0.4 TH/MM3 Basophils # (Auto) 0.1 TH/MM3 CBC Comment DIFF FINAL Differential Comment Prothrombin Time 10.5 SEC Prothromb Time International Ratio 1.0 RATIO Activated Partial Thromboplast Time 23.0 SEC Blood Urea Nitrogen 18 MG/DL Creatinine 0.68 MG/DL Random Glucose 96 MG/DL Calcium Level 8.5 MG/DL Sodium Level 139 MEQ/L Potassium Level 4.5 MEQ/L Chloride Level 107 MEQ/L Carbon Dioxide Level 23.3 MEQ/L Anion Gap 9 MEQ/L Estimat Glomerular Filtration Rate 84 ML/MIN MDM Medical Decision Making Medical Screen Exam Complete: Yes Emergency Medical Condition: Yes Medical Record Reviewed: Yes (pmh confirmed) Interpretation(s) CBC & BMP Diagram 11/26/17 12:55 Calcium Level 8.5 Differential Diagnosis Anemia, GI bleed, lab error Narrative Course We will check blood work and reevaluate after Protonix Lab work confirms critical anemia. Will place 1 unit of blood and admit to the hospital for further care HemaPrompt Point of Care Internal Pos. & Neg. Controls: Passed Fecal Specimen Occult Blood: Positive Physician Communication Physician Communication resident team agrees to admit Diagnosis Primary Impression: Anemia Qualified Codes: D64.9 - Anemia, unspecified Additional Impression: Guaiac + stool Admitting Information Admitting Physician Requests: Admit Mansi Corona MD November 26, 2017 14:05
--- NOTE | 2017-11-26 14:37 | HHI.HP ---
[facility] Service Family Medicine Primary Care Physician Cristine Horn MD Admission Diagnosis anemia, guaiac positive stool Diagnoses: International Travel<30 Days: No Contact w/Intl Traveler<30days: No Known Affected Area: No History of Present Illness Patient is a 77-year-old female with past medical history of iron deficiency anemia, celiac disease, hypothyroid, CVA, COPD and mitral valve stenosis who presents to the ED in compliance to her PCP (Dr. Cristine Horn) who advised her she needed a blood transfusion after he reviewed her blood work. Patient states that for the past month she has been feeling weak and "not herself". She reports worsening shortness of breath on exertion for the past 2 months. She is not able to walk a block without feeling short of breath. Denies diarrhea, hematuria, vaginal bleeding or hx of blood in her stools. Last bowel movement was yesterday denies any blood in her stools. Patient reports that she took naproxen pills (total 3 pills each night) for back strain last week. Patient takes 3 (81 mg) aspirin tablets daily. Denies falls, syncope, chest pain, abdominal pain, nausea or vomiting. Endorses dizziness and being off balance. Of note patient has a history of chronic anemia which she says resolved after she had a hysterectomy in 1981. Patient was placed on iron supplements last year by her PCP ramiro. (Rich Casas MD, R1) Review of Systems Constitutional: COMPLAINS OF: Fatigue, Weight loss (intentional diet), Dizziness, DENIES: Fever, Chills, Change in appetite Eyes: DENIES: Blurred vision, Vision loss Ears, nose, mouth, throat: COMPLAINS OF: Vertigo, DENIES: Throat pain, Ear Pain Cardiovascular: DENIES: Chest pain, Palpitations, Syncope (close calls), Lower Extremity Edema, Orthopnea Gastrointestinal: DENIES: Abdominal pain, Bloody stools, Constipation, Diarrhea , Nausea, Vomiting Genitourinary: COMPLAINS OF: Urinary frequency (within last month), DENIES: Abnormal vaginal bleeding, Hematuria, Dysuria Musculoskeletal: DENIES: Back pain Integumentary: DENIES: Rash Hematologic/lymphatic: DENIES: Bruising Neurologic: COMPLAINS OF: Paresthesias (Left hand, chronic), DENIES: Headache, Seizures Psychiatric: DENIES: Confusion (Rich Casas MD, R1) Past Family Social History Past Medical History Hypothyroidism, COPD Celiac disease stroke 3 yr ago COPD- recently dx summer 2016 sleep apnea, cpap last used 1 month ago Dental infection--3-4 yrs ago--> then developed mitral stenosis Mitral valve stenosis-- dx [address] Diagn[address] by Dr Vee who placed patient at anticoagulation however patient was not able to be compliant with anticoagulation because it caused her pain. Thus she was discharged as his patient. However, she reports taking 3 baby aspirins per day. Past Surgical History Hysterectomy Appendectomy Left leg orthopedic surgeries, 3 plates and 8 screws Reported Medications Reported Meds & Active Scripts Active Reported Synthroid (Levothyroxine Sodium) 25 Mcg every other day, alternates Tab 25 Mcg PO DAILY [place] Thyroid (Thyroid) 60 Mg Tab 60 Mg PO DAILY Aspirin Low Dose (Aspirin) 81 Mg Chew 324 Mg CHEW DAILY (Rich Casas MD, R1) Allergies: Coded Allergies: nickel (Verified Allergy, Severe, Burning, 11/26/17) Family History mother and father--stroke SBO, HTN - mom DM- father Social History Patient lives in [place] with . She is a permanent resident of [place] has been [place] for the past 8 months. smoking- never alcohol- 2 drinks per wk denies illicit drug use ambulates independently Patient was previously very active until a month ago when her symptoms of fatigue/weakness began. Her has taken over cleaning and cooking at home. (Rich Casas MD, R1) Physical Exam Vital Signs Vital Signs Date Time Temp Pulse Resp B/P (MAP) Pulse Ox O2 Delivery O2 Flow Rate FiO2 11/26/17 12:58 87 18 138/82 (100) 97 Room Air 11/26/17 12:58 98 Room Air 11/26/17 12:45 98.4 91 16 114/57 (76) 99 Physical Exam GENERAL: This is a well-nourished, well-developed patient, in no apparent distress. SKIN: No rashes, ecchymoses or lesions. Cool and dry. HEAD: Atraumatic. Normocephalic. EYES: Pupils equal round and reactive. Extraocular motions intact. No scleral icterus. No injection or drainage. ENT: Nose without bleeding, purulent drainage or septal hematoma. Throat without erythema, tonsillar hypertrophy or exudate. Uvula midline. Airway patent. NECK: Trachea midline. No JVD or lymphadenopathy. Supple, nontender, no meningeal signs. CARDIOVASCULAR: Regular rate and rhythm without gallops, or rubs. mild diastolic murmur. RESPIRATORY: Clear to auscultation. Breath sounds equal bilaterally. No wheezes , rales, or rhonchi. GASTROINTESTINAL: Abdomen soft, non-tender, nondistended. No hepato-splenomegaly , or palpable masses. No guarding. MUSCULOSKELETAL: Extremities without clubbing, cyanosis, or edema. No joint tenderness, effusion, or edema noted. No calf tenderness. +2 DP pulses BL. NEUROLOGICAL: Awake and alert. Cranial nerves II through XII intact. Motor and sensory grossly within normal limits. Five out of 5 muscle strength in all muscle groups. Normal speech. Laboratory Laboratory Tests Test 11/26/17 12:55 White Blood Count 7.0 Red Blood Count 4.19 Hemoglobin 7.4 Hematocrit 25.4 Mean Corpuscular Volume 60.7 Mean Corpuscular Hemoglobin 17.7 Mean Corpuscular Hemoglobin Concent 29.2 Red Cell Distribution Width 20.7 Platelet Count 386 Mean Platelet Volume 8.8 Neutrophils (%) (Auto) 58.6 Lymphocytes (%) (Auto) 25.1 Monocytes (%) (Auto) 9.5 Eosinophils (%) (Auto) 5.3 Basophils (%) (Auto) 1.5 Neutrophils # (Auto) 4.1 Lymphocytes # (Auto) 1.8 Monocytes # (Auto) 0.7 Eosinophils # (Auto) 0.4 Basophils # (Auto) 0.1 CBC Comment DIFF FINAL Differential Comment Prothrombin Time 10.5 Prothromb Time International Ratio 1.0 Activated Partial Thromboplast Time 23.0 Blood Urea Nitrogen 18 Creatinine 0.68 Random Glucose 96 Calcium Level 8.5 Sodium Level 139 Potassium Level 4.5 Chloride Level 107 Carbon Dioxide Level 23.3 Anion Gap 9 Estimat Glomerular Filtration Rate 84 (Rich Casas MD, R1) Result Diagram: 11/26/17 1255 11/26/17 1255 Caprini VTE Risk Assessment Caprini VTE Risk Assessment: Mod/High Risk (score >= 2) VTE Pharm Contraindication: High risk for bleeding Caprini Risk Assessment Model Point Value = 1 Point Value = 2 Point Value = 3 Point Value = 5 Age 41-60 Minor surgery BMI > 25 kg/m2 Swollen legs Varicose veins or History of unexplained or recurrent spontaneous Oral contraceptives or hormone replacement Sepsis (< 1 month) Serious lung disease, including pneumonia (< 1 month) Abnormal pulmonary function Acute myocardial infarction Congestive heart failure (< 1 month) History of inflammatory bowel disease Medical patient at bed rest Age 61-74 Arthroscopic surgery Major open surgery (> 45 min) Laparoscopic surgery (> 45 min) Malignancy Confined to bed (> 72 hours) Immobilizing plaster cast Central venous access Age >= 75 History of VTE Family history of VTE Factor V Leiden Prothrombin [id number] Lupus anticoagulant Anticardiolipin antibodies Elevated serum homocysteine Heparin-induced thrombocytopenia Other congenital or acquired thrombophilia Stroke (< 1 month) Elective arthroplasty Hip, pelvis, or leg fracture Acute spinal cord injury (< 1 month) Prophylaxis Regimen Total Risk Factor Score Risk Level Prophylaxis Regimen 0-1 Low Early ambulation 2 Moderate Order ONE of the following: *Sequential Compression Device (SCD) *Heparin 5000 units SQ BID 3-4 Higher Order ONE of the following medications: *Heparin 5000 units SQ TID *Enoxaparin/Lovenox 40 mg SQ daily (WT < 150 kg, CrCl > 30 mL/min) *Enoxaparin/Lovenox 30 mg SQ daily (WT < 150 kg, CrCl > 10-29 mL/min) *Enoxaparin/Lovenox 30 mg SQ BID (WT < 150 kg, CrCl > 30 mL/min) AND/OR *Sequential Compression Device (SCD) 5 or more Highest Order ONE of the following medications: *Heparin 5000 units SQ TID (Preferred with Epidurals) *Enoxaparin/Lovenox 40 mg SQ daily (WT < 150 kg, CrCl > 30 mL/min) *Enoxaparin/Lovenox 30 mg SQ daily (WT < 150 kg, CrCl > 10-29 mL/min) *Enoxaparin/Lovenox 30 mg SQ BID (WT < 150 kg, CrCl > 30 mL/min) AND *Sequential Compression Device (SCD) (Rich Casas MD, R1) Assessment and Plan Assessment and Plan Patient is a 77-year-old female with past medical history of iron deficiency anemia, hypothyroid, celiac disease CVA, COPD and mitral valve stenosis presenting with: Code Status Full code Discussed Condition With SDW Dr. Braulio Milian (Rich Casas MD, R1) Attending Attestation THIS CASE WAS DISCUSSED WITH THE RESIDENT PHYSICIANS. I HAVE REVIEWED THE RECORD AND AGREE WITH THE ABOVE NOTE AND PLAN OF CARE WAS DISCUSSED. I HAVE AUTHORIZED THE ORDER FOR ADMISSION TO AN IN-PATIENT STATUS. (Ashleigh Mora MD) Problem List: (1) Symptomatic anemia ICD Codes: D64.9 - Anemia, unspecified Status: Acute Plan: Patient with one-month history of fatigue and weakness accompanied by increased shortness of breath with exertion. Patient advised by her PCP to come to the ED for blood transfusion due to low blood count and recent blood work. In the ED patient was found to have H&H of 7.4/25.4, guaiac positive Vital signs stable GI consulted, appreciate recommendations Transfuse 2 units of packed red blood cells Trend serial H&H Continue with Protonix IV 40 mg twice daily Monitor vital signs (2) Anemia, chronic disease ICD Codes: D63.8 - Anemia in other chronic diseases classified elsewhere Status: Chronic Plan: Patient with history of iron deficiency deficiency anemia Patient takes iron supplements at home See plan above (3) COPD (chronic obstructive pulmonary disease) ICD Codes: J44.9 - Chronic obstructive pulmonary disease, unspecified Status: Chronic Plan: Duonebs as needed for shortness of breath (4) Hypothyroidism ICD Codes: E03.9 - Hypothyroidism, unspecified Status: Chronic Plan: Continue with home medication Patient alternates Synthroid and [place] thyroid dose every other day (5) Celiac disease ICD Codes: K90.0 - Celiac disease Plan: Diet with celiac disease modifications (6) Sleep apnea ICD Codes: G47.30 - Sleep apnea, unspecified Plan: CPAP ordered for overnight (7) Nutrition, metabolism, and development symptoms ICD Codes: R63.8 - Other symptoms and signs concerning food and fluid intake Plan: Fluids: 110 mL/HR Electrolytes: Monitor and replete as needed Nutrition: Regular diet with celiac disease modifications DVT prophylaxis: SCDs GI prophylaxis: Protonix 40 mg IV twice daily (Rich Casas MD, R1) Physician Certification 2 Midnight Certification Type: Admission for Inpatient Services Order for Inpatient Services The services are ordered in accordance with Medicare regulations or non- Medicare payer requirements, as applicable. In the case of services not specified as inpatient-only, they are appropriately provided as inpatient services in accordance with the 2-midnight benchmark. Estimated LOS (days): 3 days is the estimated time the patient will need to remain in the hospital, assuming treatment plan goals are met and no additional complications. Post-Hospital Plan: Home (Rich Casas MD, R1) 2 Midnight Certification Type: Admission for Inpatient Services Post-Hospital Plan: Home (Ashleigh Mora MD) Problem Qualifiers (1) Hypothyroidism: Qualified Codes: E03.9 - Hypothyroidism, unspecified Rich Casas MD, R1 November 26, 2017 14:37 Ashleigh Mora MD November 27, 2017 13:39
[2017-11-26] MEDS ORDERED: MAGNESIUM HYDROXIDE SUSP 30 ML CUP PO PRN (15:00)
[2017-11-26] MEDS ORDERED: SODIUM CHLORIDE 0.9% FLUSH 10 ML FLUSH IV FLUSH PRN (15:00)
[2017-11-26] MEDS ORDERED: ACETAMINOPHEN 325 MG TAB PO PRN ×2 (15:00)
[2017-11-26] MEDS ORDERED: SENNOSIDES 8.6 MG TAB PO PRN (15:00)
[2017-11-26] MEDS ORDERED: LACTULOSE SYRUP 20 GM/30 ML CUP PO PRN (15:00)
[2017-11-26] MEDS ORDERED: NALOXONE HCL 0.4 MG/ML AMP IV PUSH PRN (15:00)
[2017-11-26] MEDS ORDERED: ONDANSETRON HCL 4 MG/2 ML VIAL IVP PRN (15:00)
[2017-11-26] MEDS ORDERED: BISACODYL 10 MG SUPP RECTAL PRN (15:00)
[2017-11-26] MEDS ORDERED: FUROSEMIDE 20 MG/2 ML VIAL IV PUSH ONE (16:00)
[2017-11-26] MEDS: PANTOPRAZOLE SODIUM 40 MG VIAL IV PUSH SCH (20:56)
[2017-11-26] MEDS: SODIUM CHLORIDE 0.9% FLUSH 10 ML FLUSH IV FLUSH SCH (20:57)
[2017-11-26] MEDS ORDERED: RESP: ALBUTEROL 2.5 MG/IPRATROPIUM 0.5 MG NEB (PRN) NEB (21:15)
[2017-11-27] VITALS: BP 120/63; PULSE 86; RESP 18; TEMP 98.1; O2SAT 94
[2017-11-27] MEDS: SODIUM CHLOR 0.9% 1000 ML INJ 1,000 ML IV SCH ×2 (03:00→09:12)
[2017-11-27 03:56] VITALS: PULSE 89
[2017-11-27 04:00] VITALS: BP 117/62; PULSE 86; RESP 17; TEMP 98; O2SAT 97
[2017-11-27 04:44] LABS: AUTOMATED NEUTROPHIL # 4.6 TH/MM3 (1.8-7.7); BASOPHIL # 0.1 TH/MM3 (0-0.2); EOSINOPHIL # 0.3 TH/MM3 (0-0.4); EOSINOPHIL % 4.7 % (0.0-4.0); HEMATOCRIT 31.3 % (35.0-46.0); HEMOGLOBIN 9.7 GM/DL (11.6-15.3); LYMPH % 21.3 % (9.0-44.0); LYMPHOCYTE # 1.6 TH/MM3 (1.0-4.8); MEAN CELL VOLUME 64.5 FL (80.0-100.0); MEAN CORPUSCULAR HEMOGLOBIN 19.9 PG (27.0-34.0); MEAN CORPUSCULAR HGB CONC 30.9 % (32.0-36.0); MEAN PLATELET VOLUME 8.8 FL (7.0-11.0); MONOCYTE # 0.8 TH/MM3 (0-0.9); PLATELET COUNT 352 TH/MM3 (150-450); RED BLOOD COUNT 4.85 MIL/MM3 (4.00-5.30); RED CELL DISTRIBUTION WIDTH 24.1 % (11.6-17.2); WHITE BLOOD COUNT 7.4 TH/MM3 (4.0-11.0)
[2017-11-27 05:02] LABS: BICARBONATE 27.4 MEQ/L (21.0-32.0); CALCIUM 8.3 MG/DL (8.5-10.1); CREATININE 0.79 MG/DL (0.50-1.00)
[2017-11-27] MEDS ORDERED: LEVOTHYROXINE SODIUM 25 MCG TAB PO SCH (06:00)
[2017-11-27] MEDS ORDERED: THYROID 60 MG TAB PO SCH (06:00)
[2017-11-27 08:00] VITALS: BP 153/78; PULSE 86; RESP 18; TEMP 98.1; O2SAT 93
[2017-11-27] MEDS: SODIUM CHLORIDE 0.9% FLUSH 10 ML FLUSH IV FLUSH SCH (09:00)
[2017-11-27] MEDS: PANTOPRAZOLE SODIUM 40 MG VIAL IV PUSH SCH (09:27)
[2017-11-27 10:38] VITALS: PULSE 86
--- NOTE | 2017-11-27 11:19 | HHI.DCPOC ---
Discharge Care Plan Diagnosis: (1) Guaiac + stool (2) Symptomatic anemia (3) Anemia (4) Hypothyroidism Goals to Promote Your Health * To prevent worsening of your condition and complications * To maintain your health at the optimal level Directions to Meet Your Goals Take your medications as prescribed Follow your dietary instruction Follow activity as directed Keep your appointments as scheduled Take your immunizations and boosters as scheduled If your symptoms worsen call your PCP, if no PCP go to Urgent Care Center or Emergency Room Smoking is Dangerous to Your Health. Avoid second hand smoke Call the 24-hour hour crisis hotline for domestic abuse at Rich Casas MD, R1 November 27, 2017 11:19
[2017-11-27 12:00] VITALS: BP 139/58; PULSE 96; RESP 18; TEMP 97.9; O2SAT 94
[2017-11-27 12:50] LABS: HEMATOCRIT 31.5 % (35.0-46.0); HEMOGLOBIN 9.6 GM/DL (11.6-15.3)
--- NOTE | 2017-11-27 13:15 | PD.CONS ---
HPI History of Present Illness This is a 77 year old F with history significant for iron deficiency anemia, celiac disease, hypothyroid, CVA, COPD, and mitral valve stenosis. Pt states she called her PCP Dr. Horn and told him she has been having increasing weakness lately and due to her long history of anemia he told her to go to the ER for blood transfusions. Our service has been consulted to evaluate pt for symptomatic anemia. Pt takes Nu Iron, denies ever seen epic cadence specialists. Patient is very anxious to go home and states she would like to follow up outpatient regarding GI work up. She denies any GI symptoms at this time including nausea , vomiting, changes in bowel movements, abdominal pain. States last EGD and colonoscopy were approximately a year and a half ago with findings of 2 polyps and a hiatal hernia. Has never had capsule endoscopy before. Does have history of celiac disease and reports she is not strict on a gluten free diet. (Ondina Cortes) [facility], [facility] Coded Allergies: nickel (Verified Allergy, Severe, Burning, 11/26/17) Review of Systems Gastrointestinal: DENIES: Abdominal pain, Black stools, Bloody stools, Constipation, Diarrhea, Nausea, Vomiting, Heartburn, Hematemesis (Ondina Cortes) GI Exam Vitals I&O Vital Signs Date Time Temp Pulse Resp B/P (MAP) Pulse Ox O2 Delivery O2 Flow Rate FiO2 11/27/17 10:38 86 11/27/17 08:00 98.1 86 18 153/78 (103) 93 11/27/17 05:51 21 11/27/17 04:00 98.0 86 17 117/62 (80) 97 11/27/17 03:56 89 11/27/17 00:00 98.1 86 18 120/63 94 11/26/17 22:43 98.9 82 18 122/66 97 11/26/17 20:00 98.8 91 17 115/57 (76) 97 11/26/17 17:24 97.7 79 16 136/63 99 11/26/17 17:05 97.8 79 16 140/69 98 11/26/17 16:00 97.8 82 18 138/71 (93) 98 11/26/17 15:22 I/O 11/26/17 11/26/17 11/26/17 11/27/17 11/27/1711/27/18 07:00 15:00 23:00 07:00 15:00 23:00 Intake Total 965 ml 670 ml 400 ml Balance 965 ml 670 ml 400 ml Intake Oral 480 ml 240 ml IV Total 400 ml Packed Cells 400 ml 400 ml Blood Product IV Normal Saline Flush 85 ml 30 ml # Voids 2 Laboratory Test 11/27/17 04:22 11/27/17 12:12 White Blood Count 7.4 TH/MM3 Red Blood Count 4.85 MIL/MM3 Hemoglobin 9.7 GM/DL 9.6 GM/DL Hematocrit 31.3 % 31.5 % Mean Corpuscular Volume 64.5 FL Mean Corpuscular Hemoglobin 19.9 PG Mean Corpuscular Hemoglobin Concent 30.9 % Red Cell Distribution Width 24.1 % Platelet Count 352 TH/MM3 Mean Platelet Volume 8.8 FL Neutrophils (%) (Auto) 62.0 % Lymphocytes (%) (Auto) 21.3 % Monocytes (%) (Auto) 11.0 % Eosinophils (%) (Auto) 4.7 % Basophils (%) (Auto) 1.0 % Neutrophils # (Auto) 4.6 TH/MM3 Lymphocytes # (Auto) 1.6 TH/MM3 Monocytes # (Auto) 0.8 TH/MM3 Eosinophils # (Auto) 0.3 TH/MM3 Basophils # (Auto) 0.1 TH/MM3 CBC Comment DIFF FINAL Differential Comment Blood Urea Nitrogen 17 MG/DL Creatinine 0.79 MG/DL Random Glucose 97 MG/DL Calcium Level 8.3 MG/DL Sodium Level 142 MEQ/L Potassium Level 4.4 MEQ/L Chloride Level 107 MEQ/L Carbon Dioxide Level 27.4 MEQ/L Anion Gap 8 MEQ/L Estimat Glomerular Filtration Rate 70 ML/MIN Physical Examination HEENT: Normocephalic; atraumatic CHEST: Even/unlabored CARDIAC: RRR ABDOMEN: Soft, nondistended, nontender; bowel sounds active EXTREMITIES: No clubbing, cyanosis, or edema. SKIN: Normal; no rash; no jaundice. STOCK PULLER: No focal deficits; alert and oriented times three. (Ondina Cortes) Assessment and Plan Plan Assessment: - Anemia, microcytic with history of KIRK- takes Nu Iron and has had blood transfusions in the past. Pt does report symptomatic with extremes weakness. Has never seen epic cadence specialists. Now S/P 2 U PRBCs Denies history of GIB. Last EGD and colonoscopy approx 1 and a half years ago, states 2 polyps and hiatal hernia, has never had capsule endoscopy - Celiac disease- does not follow strict gluten free diet. Plan: Pt would like GI work up outpt Pt appears stable from DC from a GI standpoint Recommend outpatient work up possibly including capsule endoscopy Iron supplementation per attending Pt has been seen and examined by myself and Dr. Suarez and this note is written on her behalf (Ondina Cortes) Physician Comments seen, examined agree with above ok to dc home from gi point fu gi in 2 weeks consider capsule endoscopy, hematology eval op (Idalia Suarez MD) Ondina Cortes November 27, 2017 13:15 Idalia Suarez MD November 27, 2017 14:15
--- NOTE | 2017-11-27 13:52 | HHI.FPPN ---
Addendum to progress note ADDENDUM Reason for addendum: Additonal documentation Additional information See resident H/P from 11/26/2017 for further details regarding history. Patient with no evidence of active GI overnight. Her CBC has improved and stablized. She denies any bleeding and reports that the symptoms she had which were fatigue and weakness have resolved s/p her blood transfusions. She has h/o iron def anemia over the past year and previous GI workup was unreavling just 1.5 years ago. She had no events overnight and expresses wishes to work up her issues as outpatient. She is connected with local PCP -_ Dr. Faisal Horn. Vital Signs Date Time Temp Pulse Resp B/P (MAP) Pulse Ox O2 Delivery O2 Flow Rate FiO2 11/27/17 12:00 97.9 96 18 139/58 (85) 94 11/27/17 05:51 21 11/26/17 12:58 Room Air Laboratory Tests Test 11/27/17 04:22 11/27/17 12:12 White Blood Count 7.4 TH/MM3 Red Blood Count 4.85 MIL/MM3 Hemoglobin 9.7 GM/DL 9.6 GM/DL Hematocrit 31.3 % 31.5 % Mean Corpuscular Volume 64.5 FL Mean Corpuscular Hemoglobin 19.9 PG Mean Corpuscular Hemoglobin Concent 30.9 % Red Cell Distribution Width 24.1 % Platelet Count 352 TH/MM3 Mean Platelet Volume 8.8 FL Neutrophils (%) (Auto) 62.0 % Lymphocytes (%) (Auto) 21.3 % Monocytes (%) (Auto) 11.0 % Eosinophils (%) (Auto) 4.7 % Basophils (%) (Auto) 1.0 % Neutrophils # (Auto) 4.6 TH/MM3 Lymphocytes # (Auto) 1.6 TH/MM3 Monocytes # (Auto) 0.8 TH/MM3 Eosinophils # (Auto) 0.3 TH/MM3 Basophils # (Auto) 0.1 TH/MM3 CBC Comment DIFF FINAL Differential Comment Blood Urea Nitrogen 17 MG/DL Creatinine 0.79 MG/DL Random Glucose 97 MG/DL Calcium Level 8.3 MG/DL Sodium Level 142 MEQ/L Potassium Level 4.4 MEQ/L Chloride Level 107 MEQ/L Carbon Dioxide Level 27.4 MEQ/L Anion Gap 8 MEQ/L Estimat Glomerular Filtration Rate 70 ML/MIN Current Medications Medications (Trade) Dose Ordered Sig/Chelle Route PRN Reason Start Time Stop Time Status Last Admin Dose Admin Pantoprazole Sodium (Protonix Inj) 40 mg ONCE ONCE IV PUSH 11/26/17 13:15 11/26/17 13:16 DC 11/26/17 13:10 Sodium Chloride 250 ml @ 15 mls/hr ONCE ONCE IV 11/26/17 13:45 11/26/17 15:11 DC EXAM GENERAL: alert, oriented No distress EYES: sclera white, conjunctiva quiet MOUTH: mucous membranes are moist and pink NECK: supple, trachea midline LUNGS: clear to auscultation, unlabored no retractions or use of accessory muscles HEART: regular rate, S1 S2 ABDOMEN: soft, flat, non-tender, bowel sounds present EXTREMITIES: no edema, no calf tenderness SKIN: no rashes, no lesions NEURO - speech normal, grossly intact, ambulating without difficulty AP 1. Symptomatic anemia -- symptoms resolved following PRBCs -- H/H stable and will have further GI workup as outpatient with Dr. Suarez 2. Chronic medical issues -- COPD, MIKE, Hypothyroid -- stable and can be managed as outpatient. DC to home with close fu with PCP and GI. Ashleigh Mora MD November 27, 2017 13:52
== END 2017-11-27 16:00 | disposition home or self-care (01) ==
LOC: NEPE 12:34 → INTOOBSV 14:24 → NEDA 14:24 → N07B 16:22
PROVIDERS: ADMIT Family Medicine; ATTEND Family Medicine
DX: D50.9 Iron deficiency anemia, unspecified (principal); Z86.73 Personal history of transient ischemic attack (TIA), and cerebral infarction without residual deficits; R07.9 Chest pain, unspecified; J44.9 Chronic obstructive pulmonary disease, unspecified; E07.9 Disorder of thyroid, unspecified; Z79.899 Other long term (current) drug therapy; R19.5 Other fecal abnormalities; K90.0 Celiac disease; I05.0 Rheumatic mitral stenosis; E03.9 Hypothyroidism, unspecified; R42 Dizziness and giddiness; G47.30 Sleep apnea, unspecified
CPT/HCPCS: 36430; 80048; 85014; 85018; 85025; 85610; 85730; 86850; 86900; 86901; 86920; 96361; 96374; 96375; 96376; 99285; C9113; G0378; J1940; J7030; J7050; P9016